=== PATIENT | male | born 1955 | race Caucasian/White ===

== ENCOUNTER 2019-08-01 20:41 | Observation (INO) ==
[2019-08-01] MEDS ORDERED: CARDIZEM ONE (21:00)
[2019-08-01] MEDS ORDERED: ADENOCARD ONE ×2 (21:00)
[2019-08-01] MEDS ORDERED: ADENOCARD IV ONE ×2 (21:00)
[2019-08-01] MEDS ORDERED: LOPRESSOR ONE (21:00)
[2019-08-01] MEDS ORDERED: NS 1,000 ML ONE (21:06)
[2019-08-01] MEDS ORDERED: ASPIRIN ONE (21:29)
[2019-08-01 21:30] LABS: BASO# 0.06 X1000 (0.0-0.2); BASO% 0.6 % (0.0-0.8); EOS# 0.36 X1000 (0.0-0.7); EOS% 3.6 % (0.0-10.0); HEMATOCRIT 44.8 % (42.0-52.0); IMM GRAN# 0.03 X1000 (0.0-0.04); IMM GRAN% 0.3 % (0.0-0.5); LYMPH% 20.2 % (20.5-51.1); MCH 27.1 PG (27-31); MCHC 31.3 g/dL (33-37); MCV 86.8 FL (81-99); MONO# 0.82 X1000 (0.11-0.59); MONO% 8.3 % (1.7-9.3); MPV 9.4 FL (7.4-10.4); NEUT# 6.63 X1000 (1.4-6.5); PLT 273 X1000 (130-400); RBC 5.16 XMIL (4.7-6.1); RDW 15.3 % (11.5-14.5)
[2019-08-01 21:34] LABS: INR 0.92; PROTIME 12.4 Seconds (11.0-16.0)
[2019-08-01 21:35] LABS: PTT 28.6 Seconds (22.3-41.8)
--- NOTE | 2019-08-01 21:37 | Diag Imaging Result Doc PS360 ---
CHEST-PORTABLE - 08/01/2019 INDICATION: CP, SVT COMPARISON: 02/10/2016 FINDINGS: Stable dense scarring at the right lung apex. No new or focal infiltrates. Heart size and pulmonary vascularity remains grossly normal. No pneumothorax or pleural effusion. IMPRESSION: No change from prior. Electronically signed by José Mukherjee 08/01/2019 9:35 PM
[2019-08-01 21:46] LABS: AGAP 12; ALB/GLOB RATIO 1.4; ALBUMIN 4.1 g/dL (3.5-5.0); ALKALINE PHOSPHATASE 96 U/L (32-122); BUN 24 mg/dL (8-22); CALCIUM 9.8 mg/dL (8.8-10.2); CHLORIDE 104 mmol/L (98-107); COSMO 286; CREATININE 1.5 mg/dL (0.7-1.2); ESTIMATED GFR 47; GLUCOSE 118 mg/dL (70-104); GOT 16 U/L (10-34); GPT 14 U/L (10-44); POTASSIUM 4.5 mmol/L (3.5-5.1); SODIUM 141 mmol/L (136-145); TCO2 25 mmol/L (25-35); TOTAL BILIRUBIN < 0.15 mg/dL (0.20-1.00); TOTAL PROTEIN 7.1 g/dL (6.3-8.3)
[2019-08-01] MEDS ORDERED: NS 1,000 ML IV ONE ×2 (21:58)
[2019-08-01 22:04] LABS: FREE T4 1.35 ng/dL (0.93-1.70)
--- NOTE | 2019-08-01 22:21 | PROVIDER DOCUMENTATION ---
This chart was entered by Susan Agustin Scribe, acting as scribe for Ruthie Oliveira MD. HPI-Cardiac General - General Chief Complaint: Chest Pain Stated Complaint: CHEST PAIN/SOB Time Seen by Provider: 08/01/19 20:48 Source: patient Allergies/Adverse Reactions: Patient Allergies Allergy/AdvReac Type Severity Reaction Status Date / Time ampicillin Allergy RASH Verified 08/01/19 21:27 Penicillins Allergy RASH Verified 08/01/19 21:27 Sulfa (Sulfonamide Allergy ITCHING Verified 08/01/19 21:27 Antibiotics) Home Medications: Home Medication List Medication Instructions Recorded Confirmed Last Taken Type Fluoxetine HCl [Prozac] 40 mg PO QAM 08/07/14 11/30/17 11/30/17 05:30 History 40 mg PRAVAstatin [Pravachol] 40 mg PO QHS 08/07/14 11/30/17 11/29/17 20:00 History 40 mg Tamsulosin [Flomax] 0.4 mg PO QHS 08/07/14 11/30/17 11/29/17 20:00 History Albuterol Sulfate [Proair Hfa] 1 - 2 puff IH PRN PRN 11/24/17 11/30/17 11/30/17 05:30 History Levothyroxine [Synthroid] 100 microgm PO QAM 11/24/17 11/30/17 11/30/17 05:30 History Turmeric Root Extract [Turmeric] 500 mg PO BID 11/24/17 11/30/17 11/30/17 05:30 History Dutasteride 1 cap PO DAILY 08/01/19 08/01/19 Unknown History - History of Present Illness-Cardiac Nature of Presenting Problem: Pt is a 64 yom who presents to the ED with a cc of 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 Pt states that symptoms began after eating dinner with headache, throat pain, and bilateral arm pain. Pt denies any cardiac history. Pt reports hx of copd and lung cancer. Pt reports at home oxygen and states that he takes it only at night. Pt presents to the ED severely tachycardic. Pt denies any chest pain and is alert, talkative, A&O x 3. Pt denies any other complaints. Location: reports: central Quality of Pain: reports: none (tachycardia) Severity in ED: moderate Onset/Duration: 1 hour ago Timing: still present Context/Activities at Onset: reports: eating (after eating dinner) Modifying Factors: improves with: nothing Palpitation Quality: fast/pounding heart beat History of arrythmia: reports: SVT, other (PVC) Recent use of:: reports: no stimulants Nitro Today/Relief: reports: no nitro taken today Aspirin Treatment Today: reports: no aspirin today Prior Chest Pain/Cardiac Workup: reports: no prior chest pain Associated Symptoms: reports: shortness of breath Similar Symptoms Previously?: No Recently Seen Here or By Another Healthcare Provider: No Review of Systems - Adult - REVIEW OF SYSTEMS - ADULT Constitutional: reports: see HPI Eyes: reports: no symptoms reported Ears, Nose, Mouth & Throat: reports: see HPI, throat pain Cardiovascular: reports: see HPI, palpitations Respiratory: reports: see HPI, shortness of breath Gastrointestinal: reports: no symptoms reported Genitourinary: reports: no symptoms reported Musculoskeletal: reports: see HPI, other (bilateral arm pain) Integumentary: reports: no symptoms reported Neurological: reports: see HPI, headache/migraines Psychiatric: reports: no symptoms reported Endocrine: reports: no symptoms reported Hematologic/Lymphatic: reports: no symptoms reported Allergic/Immunologic: reports: no symptoms reported All Other Systems: Reviewed and Negative Past History - Adult - PAST MEDICAL HISTORY-ADULT Review of Records: reports: Old Records Reviewed, Nursing Assessment Review, Medications Reviewed, Social history reviewed & non-contributory. Major Childhood Illnesses: reports: denies history Cardiovascular: reports: denies history Respiratory: reports: asthma, COPD, cancer (lung) Gastrointestinal: reports: denies history Obstetrical/Gynecological: reports: denies history Genitourinary: reports: denies history Musculoskeletal: reports: denies history Neurological: reports: denies history Endocrine/Immune: reports: denies history Other Conditions: reports: denies history - PRIOR SURGERIES/PROCEDURES Surgical/Procedure History: reports: appendectomy, tonsillectomy, orthopedic (extremity) (left hand), other (vasectomy) - IMMUNIZATION STATUS Childhood Immunizations: See Nurse Assessment Flu Vaccine: See Nurse Assessment - SOCIAL HISTORY Smoking: cigarettes, less than 1 pack/day Provider spent 3-5 mins advising pt. on dangers of tobacco.: Discussed manners to quit use, and f/u contacts for add'l counseling. Substance Use: alcohol Living Situation: family Physical Exam-General - PHYSICAL EXAM-ADULT Initial Vital Signs Reviewed: No - CONSTITUTIONAL General Appearance: alert, mild distress, anxious - EYES Eyes: PERRL/EOMI - HEAD, EARS, NOSE, MOUTH & THROAT HENMT: normocephalic/atraumatic - NECK Neck: non-tender, full range of motion, supple, normal inspection - RESPIRATORY Respiratory: no respiratory distress, decreased breath sounds (worse on right lung), increased rate. negative: chest non-tender - CARDIOVASCULAR Cardiovascular: tachycardia. negative: normal peripheral pulses, regular rate, rhythm - GASTROINTESTINAL (ABDOMEN) Abdominal Exam: normal bowel sounds, non tender, soft, other (obese abdomen) - MUSCULOSKELETAL Extremity: normal inspection - SKIN Integumentary: normal color, warm/dry - NEUROLOGIC Neurologic: grossly normal - PSYCHIATRIC Psych/Mental Status: normal mood/affect, oriented x 3, anxious - HEART Score HEART Score: History: Slightly Suspicious HEART Score: ECG: Non-Specific Repolarization Disturbance/LBBB/PM HEART Score: Age: > or = 65 Years HEART Score: Risk Factors for Atherosclerotic Disease: 1 or 2 Risk Factors HEART Score: Troponin: 1-3x Normal Limit Total HEART Score:: 5 Progress - PLAN OF CARE/RESULTS Progress/Plan/Lab Results: Vital Signs - 8 hr 08/01/19 21:01 08/01/19 21:05 08/01/19 21:23 Temperature Pulse Rate 186 H 94 H 92 H Respiratory Rate 17 20 23 Blood Pressure 81/68 128/79 113/72 O2 Sat by Pulse Oximetry 99 99 100 08/01/19 21:32 08/01/19 22:00 08/01/19 22:25 Temperature 98.7 F Pulse Rate 92 H 90 87 Respiratory Rate 17 20 20 Blood Pressure 106/76 111/69 114/70 O2 Sat by Pulse Oximetry 99 100 99 08/01/19 23:00 08/01/19 23:06 Temperature Pulse Rate 80 94 H Respiratory Rate 19 19 Blood Pressure 114/75 114/75 O2 Sat by Pulse Oximetry 100 100 Laboratory Results - last 24 hr 08/01/19 08/01/19 08/01/19 20:58 20:58 20:58 WBC RBC Hgb Hct MCV MCH MCHC RDW Std Deviation Plt Count MPV Immature Gran % (Auto) Neut % (Auto) Lymph % (Auto) Hardy % (Auto) Eos % (Auto) Baso % (Auto) Immature Gran # (Auto) Neut # (Auto) Lymph # (Auto) Hardy # (Auto) Eos # (Auto) Baso # (Auto) PT INR PTT (Actin FS) D-Dimer, Quantitative Sodium 141 Potassium 4.5 Chloride 104 Carbon Dioxide 25 Anion Gap 12 BUN 24 H Creatinine 1.5 H Estimated GFR/1.73 m2 47 BUN/Creatinine Ratio 16 Glucose 118 H Calculated Osmolality 286 Calcium 9.8 Total Bilirubin < 0.15 L AST 16 ALT 14 Alkaline Phosphatase 96 Troponin T High Sens 14 Njl-T-Fnactkchrgd Pept 146 Total Protein 7.1 Albumin 4.1 Globulin 3.0 Albumin/Globulin Ratio 1.4 TSH Free T4 08/01/19 08/01/19 08/01/19 20:58 20:58 21:13 WBC 9.90 RBC 5.16 Hgb 14.0 Hct 44.8 MCV 86.8 MCH 27.1 MCHC 31.3 L RDW Std Deviation 15.3 H Plt Count 273 MPV 9.4 Immature Gran % (Auto) 0.3 Neut % (Auto) 67.0 Lymph % (Auto) 20.2 L Hardy % (Auto) 8.3 Eos % (Auto) 3.6 Baso % (Auto) 0.6 Immature Gran # (Auto) 0.03 Neut # (Auto) 6.63 H Lymph # (Auto) 2.00 Hardy # (Auto) 0.82 H Eos # (Auto) 0.36 Baso # (Auto) 0.06 PT 12.4 INR 0.92 PTT (Actin FS) 28.6 D-Dimer, Quantitative 0.48 Sodium Potassium Chloride Carbon Dioxide Anion Gap BUN Creatinine Estimated GFR/1.73 m2 BUN/Creatinine Ratio Glucose Calculated Osmolality Calcium Total Bilirubin AST ALT Alkaline Phosphatase Troponin T High Sens Ihu-Y-Tnmhdejwryr Pept Total Protein Albumin Globulin Albumin/Globulin Ratio TSH 6.57 H Free T4 1.35 08/02/19 00:30 WBC RBC Hgb Hct MCV MCH MCHC RDW Std Deviation Plt Count MPV Immature Gran % (Auto) Neut % (Auto) Lymph % (Auto) Hardy % (Auto) Eos % (Auto) Baso % (Auto) Immature Gran # (Auto) Neut # (Auto) Lymph # (Auto) Hardy # (Auto) Eos # (Auto) Baso # (Auto) PT INR PTT (Actin FS) D-Dimer, Quantitative Sodium Potassium Chloride Carbon Dioxide Anion Gap BUN Creatinine Estimated GFR/1.73 m2 BUN/Creatinine Ratio Glucose Calculated Osmolality Calcium Total Bilirubin AST ALT Alkaline Phosphatase Troponin T High Sens 51 H D Uqs-O-Rxcmurbytyq Pept Total Protein Albumin Globulin Albumin/Globulin Ratio TSH Free T4 Orders Category Date Time Status CHEST-PORTABLE [RAD] Stat Exams 08/01/19 21:09 Completed CBC WITH ELECTRONIC DIFF [HEME] Stat Lab 08/01/19 20:58 Completed COMPREHENSIVE METABOLIC PANEL [CHEM] Stat Lab 08/01/19 20:58 Completed D-DIMER [COAG] Stat Lab 08/01/19 20:58 Completed FREE T4 Stat Lab 08/01/19 21:13 Completed PRO B-NATRIURETIC PEPTIDE Stat Lab 08/01/19 20:58 Completed PT [PROTIME WITH INR] [COAG] Stat Lab 08/01/19 20:58 Completed PTT [COAG] Stat Lab 08/01/19 20:58 Completed TROPONIN T HIGH SENSITIVITY Stat Lab 08/01/19 20:58 Completed TROPONIN T HIGH SENSITIVITY Stat Lab 08/02/19 00:30 Completed TSH Stat Lab 08/01/19 21:13 Completed 0.9% Sodium Chloride Inj [Ns] 1,000 ml Med 08/01/19 21:06 Discontinued .ROUTE As directed 0.9% Sodium Chloride Inj [Ns] 1,000 ml Med 08/01/19 21:58 Discontinued IV 999 mls/hr 0.9% Sodium Chloride Inj [Ns] 1,000 ml Med 08/01/19 21:58 Discontinued IV 999 mls/hr Adenosine [Adenocard] Med 08/01/19 21:00 Discontinued 12 mg .ROUTE .STK-MED ONE Adenosine [Adenocard] Med 08/01/19 21:00 Discontinued 6 mg .ROUTE .STK-MED ONE Aspirin Med 08/01/19 21:29 Discontinued 325 mg .ROUTE .STK-MED ONE Diltiazem [Cardizem] Med 08/01/19 21:00 Discontinued 25 mg .ROUTE .STK-MED ONE Metoprolol [Lopressor] Med 08/01/19 21:00 Discontinued 5 mg .ROUTE .STK-MED ONE EKG [EKG] Stat Ther 08/01/19 21:09 Ordered Patient with Cr to 1.5 which back in 2018 was 1.1 and in 2016 was 0.8 His first troponin was normal and his repeat was 51. This is likely due to SVT but given his past history and risk factors will admit to OBS. He did have a heart cath in 2014 but has not had anything recently. SPoke to patient to see if he is ok with OBS admission. He agreed. Spoke to Dr May, primary education professor for hospitalist who accepted patient for admission. Further orders to be placed by their team. Result Diagrams: 08/01/19 20:58 08/01/19 20:58 - EKG 1 Time of EKG reading by physician:: 20:47 EKG Read and Signed by:: Ruthie Oliveira EKG Interpretation (*Must complete 3 of following elements*): Abnormal Rate: 182 Rhythm: SVT 2 Time of EKG reading by physician:: 23:20 EKG Read and Signed by:: Ruthie Oliveira EKG Interpretation (*Must complete 3 of following elements*): Normal Rate: 80 Rhythm: NSR [place]: normal QRS: normal VT Interval: normal ST Wave: normal - XRAY 1 XRAY: Bilateral XRAY Study: Chest Impression: Normal, See EMR Report (CHEST-PORTABLE - 08/01/2019 INDICATION: CP, SVT COMPARISON: 02/10/2016 FINDINGS: Stable dense scarring at the right lung apex. No new or focal infiltrates. Heart size and pulmonary vascularity remains grossly normal. No pneumothorax or pleural effusion. IMPRESSION: No change from prior. Electronically signed by José Mukherjee 08/01/2019 9:35 PM 08/01/192134 Interpreting Physician: José Mukherjee MD Dictated Date/Time: 08/01/192133 cc: Ruthie Oliveira MD; Yusuf Marroquin MD) Comparison with other Films: no changes - CONSULTS/PCP/HOSPITALIST Notification #1 *Consult/PCP/Hospitalist*: Dr May Time Discussed: 01:59 Consult Disposition: Admit Departure - Departure Date of Disposition Decision: 08/01/19 Time of Disposition Decision: 23:20 DIAGNOSIS: SVT (supraventricular tachycardia), Chest pain, Elevated troponin, ITALO (acute kidney injury) Disposition: ADMITTED INPATIENT 09 Certified Medical Emergency: Emergent Condition: Stable Additional Instructions: ED Follow Up Instructions: You have been treated by a care provider in the Emergency Department. These instructions are being provided to you so you can have an understanding of how to care for yourself upon discharge. Upon discharge from the Emergency Department, you are responsible for making arrangements for follow-up care by a physician of your choice. Take all prescribed medications as directed. Return to the Emergency Department immediately for any new or worsening symptoms. You may call the Physician Referral phone number at [phone] to obtain a list of Physicians who are taking new patients. Referrals and Follow-Ups: Yusuf Marroquin MD [Primary Care Provider] - Ehsan Pope MD [ACTIVE STAFF PHYSICIAN] - - Critical Care Note This patient required my direct & personal management of CC.: Yes Total Time (mins): 75 Critical Care Statement: This patient required my direct personal management to treat or rule out processes, the absence of which, could potentiallly result in sudden, clinically significant life or limb threatening deterioration. Attestation - Physician/ JOHN Attestation Patient care was provided by Advanced Practice Provider:: No The physician spent face to face time with patient:: Yes Advanced Practice Provider documentation review:: Supervising physician onsite and consulted in the evaluation and care of this patient. The physician did have a face to face encounter with the patient. This chart was documented by the indicated scribe, (Susan Agustin Scribe) and accurately reflects the services I performed and decisions made by me, Ruthie Marin MD, as attested by the provider's signature.
[2019-08-01 22:45] LABS: TSH 6.57 uIUmL (0.27-4.20)
[2019-08-02] MEDS ORDERED: NS 1,000 ML IV ONE (02:01)
[2019-08-02] MEDS ORDERED: ZOFRAN IV PRN (05:18)
[2019-08-02] MEDS: NS 1,000 ML IV SCH ×2 (06:48→17:54)
--- NOTE | 2019-08-02 07:00 | HISTORY AND PHYSICAL ---
PRIMARY CARE PHYSICIAN: Dr. Marroquin. CHIEF COMPLAINT: Chest discomfort and palpitations. HISTORY OF PRESENTING ILLNESS: A 64-year-old male with a history of hypertension, hyperlipidemia, GERD and COPD had presented to our emergency department with a 1-day history of having palpitations and chest discomfort. He states that he woke up with it, and did not feel well. Subsequently, he had come to the emergency department. In the ED, he was evaluated. He was found in SVT, and he was given Adenocard and he converted back to normal sinus rhythm. However, due to his presenting symptoms, he will require admission for further management. At the time of my examination, patient denied any headache, fever, chills, nausea, vomiting, diarrhea, hemoptysis, or melena, but complained of palpitations and not feeling well. PAST MEDICAL HISTORY: Includes hypertension, hyperlipidemia, OCD, non-small cell lung cancer, PVC, GERD, or COPD. PAST SURGICAL HISTORY: Appendectomy, left knee arthroscopy knee surgery, left shoulder surgery, and tonsillectomy. ALLERGIES: Penicillin, ampicillin and sulfa. CURRENT MEDICATIONS: 1. Albuterol nebs 2 puffs q.4 hours. 2. Prozac 40 mg p.o. every morning. 3. Levothyroxine 100 mcg p.o. every morning. 4. Pravastatin 40 mg p.o. at bedtime. 5. Tamsulosin 0.4 mg p.o. at bedtime. SOCIAL HISTORY: 40+ pack years history of smoking. Admits to social alcohol use. Denies any illicit drug use. FAMILY HISTORY: No history of coronary disease. REVIEW OF SYSTEMS: Fourteen point review of systems as listed in HPI. Other systems negative. PHYSICAL EXAMINATION: GENERAL: Cooperative friendly male. He is resting more comfortably now. VITAL SIGNS: Temperature 98.7 degrees, pulse 92, respirations 17, and blood pressure 106/76. HEENT: Atraumatic and normocephalic. Extraocular movements intact. PERRLA. NECK: No masses. CHEST: Clear to auscultation. CARDIOVASCULAR: Regular rate and rhythm. ABDOMEN: Soft. Positive bowel sounds. EXTREMITIES: No edema. NEUROLOGIC: He is awake, alert, and oriented x3. : No bladder distention. SKIN: Warm. LABORATORIES AND STUDIES: WBCs 9.90, hemoglobin 14.1, hematocrit 44.8, and platelets 273,000. Sodium 141, potassium 4.5, chloride 105, CO2 25, BUN 24, creatinine 1.5, glucose 118, and troponin is 51. ASSESSMENT: This is a 64-year-old male with a history of hypertension, hyperlipidemia, GERD, and COPD, who had presented to emergency department with 1-day history of having palpitations with some chest discomfort. He was seen in the ED. He is found to be in SVT. He was given an Adenocard and converted to sinus rhythm however, due to his presenting symptoms, he will require admission for further management. ASSESSMENT: 1. SVT. 2. Chest pain. 3. Hypertension. 4. Hyperlipidemia. PLAN: 1. We will admit patient to medical floor with telemetry. Continue to monitor. 2. We will consult Cardiology. 3. We will trend his troponins. 4. We will have patient on aspirin. 5. We will monitor blood pressure closely, and resume antihypertensive agents. 6. Restart other home medications. 7. Place patient on DVT prophylaxis with SCD's. 8. We will continue to follow and reassess, and make further recommendation based on patient's clinical course. cc: MD Ponce Diamond MD
--- NOTE | 2019-08-02 07:58 | EKG Report ---
Test Performed on : 08/01/2019 11:12:51 PM Test Reason : SVT Blood Pressure : / mmHG Vent. Rate : 080 BPM Atrial Rate : 080 BPM P-R Int : 170 ms QRS Dur : 102 ms QT Int : 364 ms P-R-T Axes : 060 060 054 degrees QTc Int : 419 ms Normal sinus rhythm. Normal ECG When compared with ECG of 24-NOV-2017 08:29, No significant change was found Unconfirmed Result
[2019-08-02] MEDS ORDERED: ASPIRIN PO SCH (09:00)
[2019-08-02] MEDS: AVODART PO SCH (10:07)
[2019-08-02] MEDS: PROZAC PO SCH (10:07)
[2019-08-02] MEDS: SYNTHROID PO SCH (10:08)
[2019-08-02] MEDS: PATIENT'S OWN MED PO SCH ×2 (10:08→23:03)
--- NOTE | 2019-08-02 11:56 | EKG Report ---
Test Performed on : 08/02/2019 11:37:04 AM Test Reason : SVT Blood Pressure : / mmHG Vent. Rate : 079 BPM Atrial Rate : 079 BPM P-R Int : 168 ms QRS Dur : 098 ms QT Int : 380 ms P-R-T Axes : 068 069 068 degrees QTc Int : 435 ms Normal sinus rhythm. Normal ECG When compared with ECG of 01-AUG-2019 23:12, (Unconfirmed) No significant change was found Confirmed by Kurt Hernandez MD ([id number]) on 08/02/2019 9:12:22 PM
--- NOTE | 2019-08-02 11:56 | EKG Report ---
Test Performed on : 08/01/2019 8:46:01 PM Test Reason : ED. No order in [place] Blood Pressure : / mmHG Vent. Rate : 182 BPM Atrial Rate : 093 BPM P-R Int : 000 ms QRS Dur : 134 ms QT Int : 256 ms P-R-T Axes : 000 058 044 degrees QTc Int : 445 ms Wide QRS tachycardia. Nonspecific intraventricular block Abnormal ECG When compared with ECG of 01-AUG-2019 19:24, (Unconfirmed) Wide QRS tachycardia. has replaced Sinus rhythm. Vent. rate has increased BY 111 BPM Unconfirmed Result
[2019-08-02] MEDS: TOPROL XL PO SCH (12:34)
--- NOTE | 2019-08-02 15:34 | CONSULTATION ---
DATE OF CONSULTATION: 08/02/2019 IMPRESSION: 1. Episode of supraventricular tachycardia, converted back to sinus rhythm after intravenous adenosine. Patient had associated symptoms of throat discomfort and some headache, but no chest pain. 2. Atherosclerotic coronary disease with previous coronary angiography in 2014 indicating mild to moderate atherosclerotic narrowing in proximal right coronary artery. Patient generally has continued without angina and relates negative stress myocardial perfusion study in Dr. Marroquin's office approximately three months ago. 3. Hypertension. 4. Chronic obstructive pulmonary disease. 5. Non-small cell lung cancer, resected several years ago followed by radiation therapy and chemotherapy with no clinical evidence of recurrence since then. 6. Hyperlipidemia. RECOMMENDATIONS: 1. Since patient has tolerated atenolol in the past, I suggest resuming beta-adenike therapy with Toprol-XL 50 mg daily as tolerated. 2. Follow up echocardiography. 3. Given fairly recent negative stress study, it is reasonable for patient to be discharged to home this afternoon. 4. If persistently recurrent PSVT, may consider ablation. 5. Smoking cessation strongly advised. HISTORY: This 64-year-old, white male with past history of mild to moderate coronary atherosclerotic narrowing in proximal right coronary, by coronary angiography in 2014, non-small cell lung cancer resected several years ago followed by radiation therapy and chemotherapy, hypertension, hyperlipidemia, and COPD, presented to emergency room with several hour history of tachy palpitations up to 180 beats per minute with some associated throat discomfort and mild headache. He had no chest pain. He was found to have SVT and was administered intravenous adenosine 6 mg followed by 12 mg after which he converted back to sinus rhythm. He has continued asymptomatic thereafter. He relates occasional momentary palpitations in the past but nothing like what he experienced last night. He has not had any angina. He had a stress myocardial perfusion study in Dr. Marroquin's office three months ago which he relates was negative. PAST MEDICAL HISTORY: 1. Atherosclerotic coronary disease as outlined above. 2. Hypertension. 3. Chronic obstructive pulmonary disease. 4. Non-small cell lung cancer resected several years ago followed by radiation therapy and chemotherapy with no clinical recurrence. 5. Gastroesophageal reflux disease. 6. Ventricular ectopy. PAST SURGICAL HISTORY: Includes appendectomy, left knee arthroscopic surgery, left shoulder surgery, and tonsillectomy. ALLERGIES: He is allergic or intolerant to penicillin, ampicillin, and sulfa. MEDICATIONS PRIOR TO ADMISSION: Listed. SOCIAL HISTORY: He has a [id number] history of smoking and currently has gone back to smoking for the last two years. He drinks alcohol on a social basis. He is . FAMILY HISTORY: Negative for premature coronary disease. REVIEW OF SYSTEMS: Pulmonary: Noteworthy for some chronic exertional shortness of breath but no orthopnea. He has some nonproductive cough. Gastrointestinal: Negative. Constitutional: Negative. Remainder of review of systems negative/noncontributory with 14 total systems reviewed. PHYSICAL EXAMINATION: General: Reveals an obese, older white male in no distress on room air. Vital Signs: Blood pressure 133/80, heart rate 77, oxygen saturation 97%. HEENT: Extraocular movements intact. Mucous membranes are moist. Neck: Supple without jugular venous distention. There are no carotid bruits. Chest: Clear to auscultation. Cardiac Exam: Reveals a regular rate and rhythm without appreciable murmur or gallop. Abdomen: Soft. Bowel sounds are normal. Extremities: Without edema. Neurologic: Reveals him to be alert and fully oriented. Speech is fluent. Moves all four extremities equally well. Skin: Warm and dry. Psychiatric: Reveals mood to be appropriate. PERTINENT DATA: Twelve lead EKG obtained on presentation to the emergency room demonstrates SVT with retrograde P waves evident in the inferior leads. Repeat ECG after converting back to sinus rhythm demonstrates normal sinus rhythm and is within normal limits. LABORATORY DATA: Includes a white blood cell count 9.9, hematocrit 44.8, hemoglobin 14.0, platelet count 273,000. Sodium 141, potassium 4.5, chloride 104, carbon dioxide 25, BUN 24, creatinine 1.5, glucose 118. Initial troponin T high sensitivity 14. Followup troponin T high sensitivity is at 51 and 43. TSH 6.57. Free T4 1.35. cc: MD Ponce Marte MD
[2019-08-02] MEDS ORDERED: PRAVACHOL PO SCH (21:00)
[2019-08-02] MEDS ORDERED: FLOMAX PO SCH (21:00)
[2019-08-03] MEDS: NS 1,000 ML IV SCH (05:30)
[2019-08-03] MEDS: SYNTHROID PO SCH (05:59)
[2019-08-03 07:55] LABS: BASO# 0.08 X1000 (0.0-0.2); EOS# 0.28 X1000 (0.0-0.7); EOS% 3.6 % (0.0-10.0); HEMATOCRIT 45.2 % (42.0-52.0); HEMOGLOBIN 14.1 g/dL (14.0-18.0); IMM GRAN# 0.03 X1000 (0.0-0.04); IMM GRAN% 0.4 % (0.0-0.5); LYMPH# 1.36 X1000 (1.2-3.4); LYMPH% 17.4 % (20.5-51.1); MCH 27.4 PG (27-31); MCHC 31.2 g/dL (33-37); MCV 87.8 FL (81-99); MONO# 0.64 X1000 (0.11-0.59); MONO% 8.2 % (1.7-9.3); MPV 9.5 FL (7.4-10.4); NEUT# 5.42 X1000 (1.4-6.5); NEUT% 69.4 % (42.2-75.2); PLT 282 X1000 (130-400); RBC 5.15 XMIL (4.7-6.1); RDW 15.3 % (11.5-14.5); WBC 7.81 X1000 (4.8-10.8)
[2019-08-03 08:07] LABS: AGAP 11; BUN 13 mg/dL (8-22); CALCIUM 8.5 mg/dL (8.8-10.2); CHLORIDE 105 mmol/L (98-107); COSMO 278; CREATININE 1.1 mg/dL (0.7-1.2); ESTIMATED GFR > 60; GLUCOSE 111 mg/dL (70-104); POTASSIUM 4.7 mmol/L (3.5-5.1); SODIUM 139 mmol/L (136-145); TCO2 23 mmol/L (25-35)
[2019-08-03 08:47] VITALS: BP 95/74
[2019-08-03] MEDS: AVODART PO SCH (08:58)
[2019-08-03] MEDS: TOPROL XL PO SCH (08:58)
[2019-08-03] MEDS: PROZAC PO SCH (08:58)
[2019-08-03] MEDS: PATIENT'S OWN MED PO SCH (08:59)
[2019-08-03] MEDS ORDERED: ASPIRIN PO SCH (09:00)
--- NOTE | 2019-08-03 12:50 | ECHO REPORT ---
ORDER DATE: 08/02/2019 INDICATION: SVT, dyspnea. FINDINGS: 1. The right atrium appears normal in size. 2. Mild tricuspid regurgitation. RV systolic pressure of 34. 3. Normal RV size and systolic function. 4. No significant pulmonic insufficiency. 5. Normal left atrial size with a volume index of 21. 6. No mitral valve prolapse. Trace mitral regurgitation. No mitral stenosis. 7. Normal LV size, end-diastolic dimension of 5.1 cm. Mild left ventricular hypertrophy with a posterior and interventricular septal wall thickness of 0.7 and 1.2 cm respectively. Normal LV systolic function. Estimated EF of 65% with no wall motion abnormalities. 8. Aortic valve opens well. No evidence of stenosis or insufficiency. 9. Aorta appears normal in visualized segments. 10. There may be a very subtle anterior apical pericardial effusion with no clear evidence of tamponade physiology. 11. Normal diastolic function. 12. Normal IVC size. cc: MD Ponce Soto MD
--- NOTE | 2019-08-05 03:59 | DISCHARGE SUMMARY ---
ADMISSION DATE: 08/02/2019 DISCHARGE DATE: 08/03/2019 DISCHARGING DIAGNOSIS: PSVT Looks like AV kira reentry. SECONDARY DIAGNOSES: 1. Dol-cdzvx-grrk lung cancer right upper lobe in remission. 2. Atypical chest pain, last stress test 10/11/2018 is negative and left heart catheterization in 2014 was negative. 3. Chronic obstructive pulmonary disease. 4. Hyperlipidemia. 5. Hypertension. 6. Hypogonadism. 7. Hypothyroidism. 8. Diverticulosis. 9. Kidney stones. 10. Nicotine dependency. 11. Elevated PSA of 4.8. BRIEF HISTORY: Please see the H and P that was done by hospitalist. In brief, he is a 64-year- old white male who was brought into the emergency room with palpitations of 180 beats per minute. He had a narrow complex tachycardia. It was converted into sinus after Adenocard. He was admitted to the hospital. Second cardiac enzymes slightly elevated. He had a prior left heart catheterization and stress test was negative. He was ruled out for MS by cardiac enzymes. He was seen by Dr. Toshia Hernandez cattle manager. He wants to treat either with beta blockers or calcium channel adenike. Since he has COPD, I have chosen to seek calcium channel blockers. The patient was advised not to smoke, caffeine and tea, and excessive use of bronchodilators. If he continues to have problem, consider electrophysiology testing. The rest of the hospital course was uneventful. LABORATORY: CBC: White cell count 7.8, hematocrit 45, and platelets 282,000. Sodium 139, potassium 4.7, chloride 105, BUN 13, creatinine 1.1 and glucose 111. Cardiac enzymes were negative. Free T4 is normal. Chest x-ray was stable. DISCHARGE INSTRUCTIONS: 1. The patient did receive pneumococcal vaccine 23 in 2016. 2. Prozac 40 mg daily. 3. Pravastatin 40 daily. 4. Flomax 0.4 at bedtime. 5. Synthroid 100 mcg daily. 6. Avodart 0.5 mg daily. 7. Cardizem 120 mg daily. We will continue to monitor as an outpatient, and he has elevated PSA. Follow up on 4K score tests in my office. cc: MD Ponce Marte MD MTDD
[2019-08-05] MEDS ORDERED: CARDIZEM IV ONE (18:47)
[2019-08-05] MEDS ORDERED: LOPRESSOR IV ONE (18:50)
== END 2019-08-03 10:03 | disposition home or self-care (01) ==
LOC: ED 20:41 → 3N 20:41 → SUATTDRO 08-02 04:01
PROVIDERS: ADMIT Internal Medicine; ATTEND Internal Medicine